=== PATIENT | female | born 1975 | race Asian ===

== ENCOUNTER 2017-09-18 08:51 | Inpatient (IN) | payer OTHER ==
[2017-09-18] MEDS ORDERED: MISOPROSTOL 200 MCG TAB PR ×2 (09:30→12:00)
[2017-09-18] MEDS ORDERED: OXYTOCIN 30 UNITS/LR 500 ML IV (09:30)
[2017-09-18] MEDS ORDERED: METHYLERGONOVINE 0.2 MG INJ IM ×2 (09:30→12:00)
[2017-09-18] MEDS ORDERED: CEFAZOLIN 2 GM/50 ML (PMX) 50 ML IV (09:30)
[2017-09-18] MEDS ORDERED: CARBOPROST 250 MCG INJ IM ×2 (09:30→12:00)
[2017-09-18] MEDS: LACTATED RINGER'S 1,000 ML IV ×3 (09:31→23:08)
[2017-09-18 09:49] LABS: ADD MAN DIFF? NO
[2017-09-18 09:51] LABS: BASOPHILS % 0.4 % (0.0-2.0); EOSINOPHILS # 0.1 10^3/ul (0.0-0.5); EOSINOPHILS % 0.8 % (0.0-7.0); HEMATOCRIT 36.6 % (37.0-47.0); HEMOGLOBIN 11.9 g/dl (12.0-16.0); LYMPHOCYTES # 2.1 10^3/ul (0.8-2.9); MEAN CORPUSCULAR HEMOGLOBIN 27.4 pg (29.0-33.0); MEAN CORPUSCULAR HGB CONC 32.5 g/dl (32.0-37.0); MEAN CORPUSCULAR VOLUME 84.3 fl (82.0-101.0); MEAN PLATELET VOLUME 12.2 fl (7.4-10.4); MONOCYTE # 0.8 10^3/ul (0.3-0.9); MONOCYTES % 8.1 % (0.0-11.0); NEUTROPHILS % 68.7 % (39.0-77.0); PLATELET COUNT 183 10^3/UL (140-415); RED BLOOD COUNT 4.34 10^6/ul (4.20-5.40); RED CELL DISTRIBUTION WIDTH 16.1 % (11.5-14.5)
[2017-09-18 09:51] LABS: WHITE BLOOD COUNT 10.2 10^3/ul (4.8-10.8)
[2017-09-18 10:11] LABS: INR 0.87; PARTIAL THROMBOPLASTIN TIME 26.4 Sec (25.0-35.0); PROTIME 11.9 Sec (11.9-14.9); PT RATIO 0.9
[2017-09-18] MEDS ORDERED: FENTAnyl 50 MCG/ML VIAL (10:51)
[2017-09-18] MEDS ORDERED: morphine SULFATE/PF (10 MG/10 ML) INJ (10:51)
[2017-09-18] MEDS ORDERED: PHENYLephrine (100 MCG/ML) 5ML SYG (10:51)
[2017-09-18] MEDS ORDERED: DEXAMETHASONE 4 MG/ML 1 ML INJ (11:15)
[2017-09-18] MEDS ORDERED: ONDANSETRON 4 MG INJ (11:15)
[2017-09-18 11:50] LABS: HEPATITIS B SURFACE ANTIGEN NEGATIVE (NEGATIVE)
[2017-09-18] MEDS: IBUPROFEN 600 MG TAB PO (12:00)
[2017-09-18] MEDS: OXYTOCIN 30 UNITS/LR 500 ML IV ×2 (13:37→17:26)
[2017-09-18] MEDS ORDERED: NALOXONE (0.4 MG/ML) INJ IV (17:00)
[2017-09-18] MEDS ORDERED: HYDROmorphONE 0.5 MG/0.5 ML SYG IV ×2 (17:00)
[2017-09-18] MEDS ORDERED: ONDANSETRON 4 MG INJ IV (17:00)
[2017-09-18] MEDS ORDERED: ZOLPIDEM 5 MG TAB PO (17:00)
[2017-09-18] MEDS ORDERED: DIPHENHYDRAMINE 50 MG INJ IV (17:00)
[2017-09-18] MEDS ORDERED: NALBUPHINE HCL (10 MG/1 ML) INJ IV (17:00)
[2017-09-18] MEDS: CEFAZOLIN 2 GM/50 ML (PMX) 50 ML IV (17:34)
[2017-09-18 18:36] LABS: RAPID PLASMA REAGIN NONREACTIVE (NR)
[2017-09-18] MEDS: SENNA/DOCUSATE NA (8.6MG/50MG) TAB PO (21:00)
[2017-09-19] MEDS: KETOROLAC 30 MG INJ IV (03:19)
[2017-09-19] MEDS: CEFAZOLIN 2 GM/50 ML (PMX) 50 ML IVPB ×3 (03:54→10:21)
[2017-09-19] MEDS: LACTATED RINGER'S 1,000 ML IV (07:19)
[2017-09-19] MEDS: SENNA/DOCUSATE NA (8.6MG/50MG) TAB PO ×2 (08:43→20:53)
[2017-09-19 09:04] LABS: ADD MAN DIFF? NO
[2017-09-19 09:18] LABS: BASOPHILS % 0.1 % (0.0-2.0); EOSINOPHILS % 0.1 % (0.0-7.0); HEMATOCRIT 28.4 % (37.0-47.0); HEMOGLOBIN 9.4 g/dl (12.0-16.0); LYMPHOCYTES # 1.2 10^3/ul (0.8-2.9); LYMPHOCYTES % 11.6 % (15.0-51.0); MEAN CORPUSCULAR HEMOGLOBIN 27.9 pg (29.0-33.0); MEAN CORPUSCULAR HGB CONC 33.1 g/dl (32.0-37.0); MEAN CORPUSCULAR VOLUME 84.3 fl (82.0-101.0); MEAN PLATELET VOLUME 11.8 fl (7.4-10.4); MONOCYTES % 9.1 % (0.0-11.0); NEUTROPHIL # 8.4 10^3/ul (1.6-7.5); NEUTROPHILS % 78.4 % (39.0-77.0); PLATELET COUNT 119 10^3/UL (140-415); RED BLOOD COUNT 3.37 10^6/ul (4.20-5.40); RED CELL DISTRIBUTION WIDTH 16.1 % (11.5-14.5)
[2017-09-19 09:18] LABS: WHITE BLOOD COUNT 10.6 10^3/ul (4.8-10.8)
[2017-09-19] MEDS: OXYCODONE/ACETAMINOPHEN (5/325) TAB PO ×2 (12:23→20:53)
[2017-09-19] MEDS: IBUPROFEN 600 MG TAB PO ×2 (12:55→17:12)
[2017-09-20] MEDS: IBUPROFEN 600 MG TAB PO ×5 (01:11→23:42)
[2017-09-20] MEDS: SENNA/DOCUSATE NA (8.6MG/50MG) TAB PO ×2 (10:41→21:19)
[2017-09-20] MEDS: OXYCODONE/ACETAMINOPHEN (5/325) TAB PO (19:30)
[2017-09-21] MEDS: IBUPROFEN 600 MG TAB PO (05:48)
[2017-09-21] MEDS: SENNA/DOCUSATE NA (8.6MG/50MG) TAB PO (08:24)
[2017-09-21] MEDS: OXYCODONE/ACETAMINOPHEN (5/325) TAB PO (08:24)
== END 2017-09-21 11:15 | disposition home or self-care (01) | DRG 766 ==
LOC: L-D 08:51 → PP1 15:41
PROVIDERS: Obstetrics & Gynecology
PROC: 10D00Z1 Extraction of Products of Conception, Low, Open Approach (ICD-10-PCS; principal; 2017-09-18 09:30)
DX: O34.219 Maternal care for unspecified type scar from previous cesarean delivery (principal); Z37.0 Single live birth; Z3A.39 39 weeks gestation of pregnancy
CPT/HCPCS: 85025; 85610; 85730; 86592; 86850; 86900; 86901; 87340; 99464